=== PATIENT | female | born 1995 | race Two or more races ===

== ENCOUNTER 2024-02-23 12:15 | Outpatient (CLI) | payer OTHER, SELFPAY | END 2024-02-23 12:16 | disposition home or self-care (01) | LOC: NFLDREF 03-17 16:23 | PROVIDERS: PCP Nurse Practitioner Family; Visit Provider Nurse Practitioner Family | DX: N30.90 Cystitis, unspecified without hematuria (principal); B96.4 Proteus (mirabilis) (morganii) as the cause of diseases classified elsewhere | CPT/HCPCS: 87086; 87186 ==